=== PATIENT | female | born 1965 | race African-American/Black ===

== ENCOUNTER 2020-08-09 23:52 | Inpatient (IN) | payer OTHER, SELFPAY ==
[2020-08-10 01:02] LABS: #Basophils 0.1 10x3/uL (0.0-0.2); #Eosinphils 0.1 10x3/uL (0.0-0.5); #Monocytes 0.6 10x3/uL (0.0-1.1); #Neutrophils 5.7 10x3/uL (1.5-8.4); %Basophils 0.7 % (0.0-2.0); %Eosinophils 1.7 % (0.0-6.0); %Lymphocytes 22.5 % (18.0-47.0); %Monocytes 6.8 % (0.0-10.0); %Neutrophils 68.1 % (40.0-75.0); Hemoglobin 14.4 g/dL (12.0-15.5); Mean Corpuscular HGB CONC 32.1 g/dL (32.0-36.0); Mean Corpuscular Hemoglobin 30.5 pg (27.0-33.0); Mean Corpuscular Volume 94.9 fl (81.6-98.3); Mean Platelet Volume 11.5 fl (7.4-10.4); Platelet Count 218 10x3/uL (150-450); RBC Distribution Width 14.7 % (11.5-14.5); Red Blood Cell (RBC) Count 4.72 10x6/uL (3.90-5.03); White Blood Cell (WBC) Count 8.4 10x3/uL (3.5-10.5)
[2020-08-10 01:16] LABS: ALT (SGPT) 36 U/L (8-55); AST (SGOT) 34 U/L (5-34); Albumin 3.5 g/dL (3.5-5.0); Alkaline Phosphatase 128 U/L (40-110); Anion Gap 16 mmol/L (10-20); BUN (Urea Nitrogen) 31 mg/dL (9.8-20.1); Calc. Creatinine Clearance 0 mL/min (70-130); Calcium 8.9 mg/dL (7.8-10.44); Carbon Dioxide 19 mmol/L (22-29); Chloride 107 mmol/L (98-107); Globulin 3.7 g/dL (2.4-3.5); Glucose 118 mg/dL (70-105); Potassium 4.2 mmol/L (3.5-5.1); Protein, Total 7.2 g/dL (6.0-8.3); Sodium 138 mmol/L (136-145)
[2020-08-10 02:14] LABS: CKMB 1.9 ng/mL (0-6.6)
[2020-08-10] MEDS ORDERED: Furosemide 20 MG/2 ML VIAL SLOW IVP SCH (03:15)
[2020-08-10 04:09] VITALS: BMI 26.5
[2020-08-10 06:07] LABS: Troponin I 0.043 ng/mL (< 0.028)
[2020-08-10 06:23] LABS: Troponin I 0.049 ng/mL (< 0.028)
[2020-08-10] MEDS: Carvedilol 3.125 MG TAB PO SCH ×2 (09:09→18:19)
[2020-08-10] MEDS: Furosemide 20 MG TAB PO SCH ×2 (09:09→15:00)
[2020-08-10] MEDS: Enoxaparin Sodium 40 MG/0.4 ML SYRINGE SC SCH (09:09)
[2020-08-10] MEDS: Aspirin 81 mg Enteric Coated Tablet PO SCH (09:10)
[2020-08-10] MEDS: Guaifenesin DM 100-10/5 ML UDCUP PO PRN (19:56)
[2020-08-10] MEDS ORDERED: Atorvastatin Calcium 40 MG TAB PO SCH (21:00)
[2020-08-10] MEDS ORDERED: methylPREDNISolone Sod Succ 40 MG VIAL IVP SCH (22:00)
[2020-08-10] MEDS ORDERED: Melatonin 3 MG TAB PO SCH (23:30)
[2020-08-11] MEDS: Guaifenesin DM 100-10/5 ML UDCUP PO PRN (03:46)
[2020-08-11 05:50] VITALS: BP 117/80
[2020-08-11 07:33] VITALS: TEMP 98.1
[2020-08-11] MEDS: Furosemide 20 MG TAB PO SCH (09:27)
[2020-08-11] MEDS: Aspirin 81 mg Enteric Coated Tablet PO SCH (09:27)
[2020-08-11] MEDS: Carvedilol 3.125 MG TAB PO SCH (09:27)
[2020-08-11] MEDS: Enoxaparin Sodium 40 MG/0.4 ML SYRINGE SC SCH (09:29)
== END 2020-08-11 10:45 | disposition left against medical advice (07) | DRG 292 ==
LOC: CSHERS 23:52 → CSHTELE 08-10 03:00 → OBSVTOIN 08-10 14:47
PROVIDERS: ADMIT Family Medicine; ATTEND Internal Medicine
DX: I50.43 Acute on chronic combined systolic (congestive) and diastolic (congestive) heart failure (principal); I42.8 Other cardiomyopathies; I47.2 Ventricular tachycardia; F14.10 Cocaine abuse, uncomplicated; I25.10 Atherosclerotic heart disease of native coronary artery without angina pectoris; F17.210 Nicotine dependence, cigarettes, uncomplicated; Z86.73 Personal history of transient ischemic attack (TIA), and cerebral infarction without residual deficits; Z79.82 Long term (current) use of aspirin; Z79.899 Other long term (current) drug therapy; Z82.5 Family history of asthma and other chronic lower respiratory diseases; Z82.49 Family history of ischemic heart disease and other diseases of the circulatory system; Z80.0 Family history of malignant neoplasm of digestive organs
CPT/HCPCS: 36415; 71045; 80053; 82553; 83880; 84484; 85025; 93005; 93010; 94640; 96372; 96374; G0378; J1650; J1940; J7620

== ENCOUNTER 2020-11-20 14:17 | Emergency (ER) | payer OTHER ==
[2020-11-20] MEDS ORDERED: Ventolin HFA Inhaler 60 PUFF INHALER ONE (15:11)
[2020-11-20] MEDS ORDERED: Furosemide 40 MG/4 ML VIAL ONE (15:11)
[2020-11-20 15:44] LABS: #Basophils 0.1 10x3/uL (0.0-0.2); #Eosinphils 0.1 10x3/uL (0.0-0.5); #Neutrophils 3.5 10x3/uL (1.5-8.4); %Basophils 0.8 % (0.0-2.0); %Eosinophils 1.6 % (0.0-6.0); %Lymphocytes 45.8 % (18.0-47.0); %Monocytes 11.2 % (0.0-10.0); %Neutrophils 40.3 % (40.0-75.0); Hemoglobin 14.4 g/dL (12.0-15.5); Mean Corpuscular HGB CONC 31.7 g/dL (32.0-36.0); Mean Corpuscular Hemoglobin 29.6 pg (27.0-33.0); Mean Corpuscular Volume 93.4 fl (81.6-98.3); Mean Platelet Volume 11.1 fl (7.4-10.4); Platelet Count 244 10x3/uL (150-450); RBC Distribution Width 17.4 % (11.5-14.5); Red Blood Cell (RBC) Count 4.86 10x6/uL (3.90-5.03); White Blood Cell (WBC) Count 8.8 10x3/uL (3.5-10.5)
[2020-11-20 15:55] LABS: ALT (SGPT) 18 U/L (8-55); AST (SGOT) 26 U/L (5-34); Albumin 3.5 g/dL (3.5-5.0); Alkaline Phosphatase 120 U/L (40-110); Anion Gap 16 mmol/L (10-20); BUN (Urea Nitrogen) 27 mg/dL (9.8-20.1); Bilirubin, Total 3.6 mg/dL (0.2-1.2); Calc. Creatinine Clearance 0 mL/min (70-130); Calcium 9.8 mg/dL (7.8-10.44); Carbon Dioxide 22 mmol/L (22-29); Chloride 103 mmol/L (98-107); Globulin 4.1 g/dL (2.4-3.5); Glucose 90 mg/dL (70-105); Potassium 4.3 mmol/L (3.5-5.1); Protein, Total 7.6 g/dL (6.0-8.3); Sodium 137 mmol/L (136-145)
[2020-11-20 16:16] LABS: CKMB 1.5 ng/mL (0-6.6)
== END 2020-11-20 21:28 | disposition home or self-care (01) ==
LOC: CSHERS 14:17
DX: I11.0 Hypertensive heart disease with heart failure (principal); I50.9 Heart failure, unspecified; E11.9 Type 2 diabetes mellitus without complications; J44.9 Chronic obstructive pulmonary disease, unspecified; I42.9 Cardiomyopathy, unspecified; Z86.73 Personal history of transient ischemic attack (TIA), and cerebral infarction without residual deficits; Z79.82 Long term (current) use of aspirin; Z79.899 Other long term (current) drug therapy
CPT/HCPCS: 36415; 71045; 80053; 82553; 83880; 84484; 85025; 93005; 96374; J1940